=== PATIENT | male | born 1970 ===

== ENCOUNTER 2016-06-08 10:52 | Emergency (ER) | payer MEDICAID ==
[~2016-06-08] VITALS: Ht 185.4 cm; Wt 110.0 kg
[~2016-06-08 10:52] MED LIST: ASPI-973 PO; ATRV10T PO; DILT120T3 PO; GLBR5T PO; HYDR-4003 PO; METF500T4 PO; PRE20 PO; RAMI10CA PO
[2016-06-08 11:11] VITALS: BP 155/93; PULSE 82; RESP 18; O2SAT 98
--- NOTE | 2016-06-08 11:39 | ED.REPORT ---
HPI-Extremity Problem Lower Date of Service Jun 08, 2016 ED Provider: Dr. West Pt is a 45 y/o male w/ a hx of diabetes, HTN, presenting to the ED due to boil on left foot onset 2 days ago. He believes he may have developed a blister on his foot due to friction of his boot and popped subsequently popped the blister. He had a similar boil before which self resolved but he wanted this one to be checked out. Pt denies fever, chills, rash, leg swelling, nausea, vomiting. Nursing Notes Stated Complaint: LEFT FOOT BOIL Chief Complaint: Skin Rash/Abscess Nursing Notes Reviewed: Yes Allergies: Coded Allergies: No Known Allergies (Unverified , 06/08/16) Scheduled Aspirin (Aspirin) 81 Mg Tablet 162 MG PO DAILY Atorvastatin (Lipitor) 10 Mg Tab 10 MG PO DAILY Bacitracin (Bacitracin Ointment) 28.4 Gm Oint...g. 1 APPLIC TP DAILY Glyburide (Glyburide) 5 Mg Tab 10 MG PO BIDWM Metformin (Metformin) 500 Mg Tablet 1,500 MG PO DAILYWM Metformin (Metformin) 500 Mg Tablet 1,000 MG PO DAILYWD Prednisone (PredniSONE) 20 Mg Tablet 40 MG PO DAILY Take 40 mg daily for the next 5 days. First dose administered today in the ER. Ramipril (Ramipril) 10 Mg Capsule 10 MG PO DAILY Scheduled PRN Diltiazem (Diltiazem) 120 Mg Tablet 120 MG PO DAILY PRN PRN AD Hydrocodone-Acetaminophen 5-325 mg (Hydrocodone-Acetaminophen 5-325 mg) 1 Each Tablet 1-2 TABLET PO Q4H PRN PRN For Pain General Time Seen by MD: 11:38 Chief Complaint Other (left foot boil) Hx Obtained From: Patient Arrived By: Walk-in Onset Occurred: 2 days ago Symptom Duration: Since onset Location: : Foot left Quality: Painful Severity: Current: Mild Severity: Maximum: Mild Past Medical History Past Medical History Notes: Seen in ED 07/15/15 - Influenza A positive Past Medical History Angina Reports: Diabetes mellitus, Hypertension Past Surgical History denies Family History non-contributory Smoking History Never Smoker Social History Alcohol Use: "Social" Drug Use: Denies drug use Other Social History: Good social support, , Local resident Occupation lives with and family Ambulatory Status Independent Review of Systems Constitutional: Denies: Chills, Fever Musculoskeletal: Reports: Extremity pain, Denies: Extremity swelling Skin: Reports Rash Complete sys rev & neg: except as marked. GI: Denies: Nausea, Vomiting Physical Exam Initial Vital Signs Vital Signs (First) Date Time Temp Pulse Resp B/P Pulse Ox O2 Delivery O2 Flow Rate FiO2 06/08/16 11:11 36.3 82 18 155/93 98 Room Air Initial VS: Reviewed, Vital signs normal Head / Eyes: Atraumatic, Normocephalic ENT: Mucous membranes moist, Conjunctiva normal, No scleral icterus Neck: Supple, Full range of motion Respiratory: No respiratory distress Cardiovascular: Intact distal pulses Abdomen / GI: No distention Upper Extremities: Vascular intact, Neuro intact, No swelling, No tenderness Neurologic: Alert, Oriented, Nonfocal Psychiatric: Mood/affect normal, Behavior normal, Normal thought content Lower Extremity / Pelvis / MS: Full range of motion, No deformity, Neurologic intact, Vascular intact, No ligamentous injury, Tendon function NL, No compartment syndrome, No circumferential injury 1 cm abrasion over the lateral aspect of the left foot. No erythema, discharge, fluctuance, warmth, swelling Ankle / Foot: No deformity, Neurologic intact, Vascular intact, No ligamentous injury, Tendon function NL, No compartment syndrome, No edema Re-Eval/Medical Decision Source of Hx: Old records Re-Evaluation/Progress : Time of Eval: 12:34 Re-Evaluation/Progress Note: Pt rechecked. Informed pt of plan for treatment. Pt understands and agrees with plan for treatment. F/U instructions and RTER warnings given. All questions addressed. Counseled Regarding: Diagnosis, Need for follow-up, When/why to return to ED Discharge & Departure Impression: Primary Impression: Blister Additional Impression: Diabetes mellitus, type II Diabetes mellitus complication status: with skin complications Diabetes mellitus complication detail: with other skin complication Qualified Code: E11.628 - Type 2 diabetes mellitus with other skin complications Disposition: Home Discharge Condition All VS Reviewed: Yes Condition: Stable Additional Instructions: ED evaluation included interview and exam. There is a blister on your L foot. With your diabetes, it is important to care for it well so it does not become infected. Keep wound clean, apply antibiotic ointment daily and keep wound covered. Wear shoes and socks that fit well, keep your feet dry. Rest until this heals. Return to ED for increasing redness, swelling at wound. Follow up with [facility] resident's clinic next week. Referrals: [facility] (PCP) Scribe Attestation Portions of this note were transcribed by Aaron Barone. I, Dr. West personally performed the history, physical exam and medical decision-making; I reviewed and confirmed the accuracy of the information in the transcribed note. Signed by Santos Robledo, 06/08/16 - 1200 copies to: [facility] Shawn West MD Jun 08, 2016 11:39 AARON BARONE Jun 08, 2016 11:46
[2016-06-08] MEDS ORDERED: Bacitracin Ointment Packet TOPICAL ONE (11:45)
[2016-06-08] MEDS ORDERED: BACI28.4 TP (11:54)
== END 2016-06-08 13:00 | disposition home or self-care (01) ==
LOC: SED 10:52
DX: S90.822A Blister (nonthermal), left foot, initial encounter (principal); X58.XXXA Exposure to other specified factors, initial encounter; Y93.9 Activity, unspecified; Y92.9 Unspecified place or not applicable; Y99.8 Other external cause status; E11.628 Type 2 diabetes mellitus with other skin complications; I10 Essential (primary) hypertension; Z79.82 Long term (current) use of aspirin; Z79.84 Long term (current) use of oral hypoglycemic drugs

== ENCOUNTER 2016-06-10 21:22 | Emergency (ER) | payer MEDICAID ==
[~2016-06-10 21:22] MED LIST changes: +BACI28.4 TP
[2016-06-10 21:45] VITALS: BP 152/93; PULSE 85; RESP 20; O2SAT 97
--- NOTE | 2016-06-10 23:07 | ED.REPORT ---
HPI-Extremity Problem Lower Date of Service Jun 10, 2016 ED Provider: Dr. Crews Pt is a 45 year old male with a history of DM who presents to the ED for a re- check to be cleared to go back to work. He was recently diagnosed with cellulitis on his left foot which he has been treating with bacitracin. Pt reports that he wearing well-fitting shoes and keeping them clean and dry. He denies any fevers or any other symptoms. He reports that his foot appears worse than it was when he was in earlier this week. Nursing Notes Stated Complaint: RECHECK, TO GO BACK TO WORK Chief Complaint: General Complaint Nursing Notes Reviewed: Yes Allergies: Coded Allergies: No Known Allergies (Unverified , 06/08/16) Scheduled Aspirin (Aspirin) 81 Mg Tablet 162 MG PO DAILY Atorvastatin (Lipitor) 10 Mg Tab 10 MG PO DAILY Bacitracin (Bacitracin Ointment) 28.4 Gm Oint...g. 1 APPLIC TP DAILY Glyburide (Glyburide) 5 Mg Tab 10 MG PO BIDWM Metformin (Metformin) 500 Mg Tablet 1,500 MG PO DAILYWM Metformin (Metformin) 500 Mg Tablet 1,000 MG PO DAILYWD Prednisone (PredniSONE) 20 Mg Tablet 40 MG PO DAILY Take 40 mg daily for the next 5 days. First dose administered today in the ER. Ramipril (Ramipril) 10 Mg Capsule 10 MG PO DAILY Scheduled PRN Diltiazem (Diltiazem) 120 Mg Tablet 120 MG PO DAILY PRN PRN AD Hydrocodone-Acetaminophen 5-325 mg (Hydrocodone-Acetaminophen 5-325 mg) 1 Each Tablet 1-2 TABLET PO Q4H PRN PRN For Pain General Time Seen by MD: 23:06 Chief Complaint Other (Blisters ) Hx Obtained From: Patient Arrived By: Walk-in Onset Occurred: 5 days ago Symptom Duration: Since onset Severity: Current: No pain currently Severity: Maximum: Mild Similar Sx Previous: Yes Past Medical History Past Medical History Notes: Seen in ED 07/15/15 - Influenza A positive Past Medical History Angina Reports: Diabetes mellitus, Hypertension Past Surgical History denies Family History non-contributory Smoking History Never Smoker Social History Alcohol Use: "Social" Drug Use: Denies drug use Other Social History: Good social support, , Local resident Occupation lives with and family Ambulatory Status Independent Review of Systems Constitutional: Denies: Chills, Fever, Malaise, Weakness - generalized Musculoskeletal: Denies: Extremity pain, Extremity swelling Neurologic: Denies: Change LOC, Dizziness, Headache, Syncope, Weakness Complete sys rev & neg: except as marked. Physical Exam Initial Vital Signs Vital Signs (First) Date Time Temp Pulse Resp B/P Pulse Ox O2 Delivery O2 Flow Rate FiO2 06/10/16 21:45 36.7 85 20 152/93 97 Room Air Initial VS: Reviewed General/Constitutional: Well-developed, Well-nourished Head / Eyes: Atraumatic, Normocephalic, PERRL ENT: Mucous membranes moist, Conjunctiva normal, No scleral icterus Neck: Supple, Non-tender, Full range of motion Skin: Warm, Dry, No cyanosis Neurologic: Alert, Oriented, Nonfocal Lower Extremity / Pelvis / MS: Atraumatic, Inspection NL, No swelling, Non- tender Ankle / Foot: Atraumatic, Inspection NL, No swelling Dry cracked skin about his bilateral feet Suspected tinea pedis Re-Eval/Medical Decision Med Decision/Clinical Course I think he probably has tinea. There is a chance it is also cellulitic. There is erythema and cracking with scaling. I am going to put him on some Nizoral cream as well as a course of Keflex. Have this rechecked next week. I think he can go back to work either way. Source of Hx: Old records Re-Evaluation/Progress : Time of Eval: 23:22 Re-Evaluation/Progress Note: Pt is rechecked and informed of his diagnosis and the plan to discharge him at this time. He understands and agrees, all questions are addressed. Counseled Regarding: Diagnosis, Need for follow-up, When/why to return to ED Discharge & Departure Impression: Primary Impression: Tinea pedis Laterality: left Qualified Code: B35.3 - Tinea pedis Disposition: Home Discharge Condition All VS Reviewed: Yes Condition: Stable Patient Instructions: Tinea Pedis (ED) Additional Instructions: Take the antibiotic prescribed (Keflex) twice every day for the next 5 days. Apply Nizoral cream to the affected area twice every day for the next 10 days. Keep your feet clean and dry. Watch your blood sugar carefully and follow up with your primary care provider next week. You may return to work on TuesdayJune 14. Return to the emergency department with any new or worsening symptoms. Referrals: [facility] (PCP) Santos Attestation Portions of this note were transcribed by Leydi Shaffer. I, Dr. Crews personally performed the history, physical exam and medical decision-making; I reviewed and confirmed the accuracy of the information in the transcribed note. Signed by: Santos Martinez, 06/10/2016 23:25 copies to: [facility] Jayy Crews DO Jun 10, 2016 23:06 WAYNE SHAFFER Jun 10, 2016 23:13
[2016-06-10 23:55] VITALS: BP 152/93; PULSE 85; RESP 20; O2SAT 97
== END 2016-06-10 23:57 | disposition home or self-care (01) ==
LOC: SED 21:22
DX: B35.3 Tinea pedis (principal); E11.9 Type 2 diabetes mellitus without complications; I10 Essential (primary) hypertension; Z79.82 Long term (current) use of aspirin; Z79.84 Long term (current) use of oral hypoglycemic drugs

== ENCOUNTER 2016-07-05 21:38 | Emergency (ER) | payer MEDICAID ==
[~2016-07-05] VITALS: Ht 182.9 cm; Wt 111.8 kg
[2016-07-05 21:54] VITALS: BP 140/85; PULSE 92; RESP 16; O2SAT 98
--- NOTE | 2016-07-05 23:18 | ED.REPORT ---
HPI-Abd Pain M 40 and Over Date of Service Jul 05, 2016 ED Provider: Stephan Terrazas MD 45 year old male presents to the ER accompanied by his complaining of RLQ and right groin pain onset yesterday. Pain "feels like a balloon", and is exacerbated by standing/sitting upright. Patient denies fever, nausea, and vomiting. He also states that he was on his feet all day yesterday. Nursing Notes Stated Complaint: APPENDIX HURTS Chief Complaint: Male Abdominal Pain Nursing Notes Reviewed: Yes Allergies: Coded Allergies: No Known Allergies (Unverified , 07/05/16) Scheduled Aspirin (Aspirin) 81 Mg Tablet 162 MG PO DAILY Atorvastatin (Lipitor) 10 Mg Tab 10 MG PO DAILY Bacitracin (Bacitracin Ointment) 28.4 Gm Oint...g. 1 APPLIC TP DAILY Glyburide (Glyburide) 5 Mg Tab 10 MG PO BIDWM Metformin (Metformin) 500 Mg Tablet 1,500 MG PO DAILYWM Metformin (Metformin) 500 Mg Tablet 1,000 MG PO DAILYWD Prednisone (PredniSONE) 20 Mg Tablet 40 MG PO DAILY Take 40 mg daily for the next 5 days. First dose administered today in the ER. Ramipril (Ramipril) 10 Mg Capsule 10 MG PO DAILY Scheduled PRN Diltiazem (Diltiazem) 120 Mg Tablet 120 MG PO DAILY PRN PRN AD Hydrocodone-Acetaminophen 5-325 mg (Hydrocodone-Acetaminophen 5-325 mg) 1 Each Tablet 1-2 TABLET PO Q4H PRN PRN For Pain Ibuprofen (Ibuprofen) 800 Mg Tablet 800 MG PO TID PRN PRN For Pain General Time Seen by MD: 23:17 Chief Complaint Abdominal pain Hx Obtained From: Patient Arrived By: Walk-in Sudden in Onset?: No Onset Occurred: Yesterday Symptom Duration: Since onset Location: : RLQ Quality: Painful Severity: Current: Moderate Severity: Maximum: Moderate Associated with: Denies: Fever, Nausea, Vomiting Pertinent Negative: Pt denies other symptoms Similar Sx Previous: No Past Medical History Past Medical History Notes: Seen in ED 07/15/15 - Influenza A positive Past Medical History Angina Reports: Diabetes mellitus, Hypertension Past Surgical History denies Family History non-contributory Smoking History Never Smoker Social History Alcohol Use: "Social" Drug Use: Denies drug use Other Social History: Good social support, , Local resident Occupation lives with and family Ambulatory Status Independent Review of Systems Constitutional: Denies: Chills, Fever GI: Reports: Abdominal pain, Denies: Nausea, Vomiting Male: Denies Penile discharge Complete sys rev & neg: except as marked. Physical Exam Initial Vital Signs Vital Signs (First) Date Time Temp Pulse Resp B/P Pulse Ox O2 Delivery O2 Flow Rate FiO2 07/05/16 21:54 36.6 92 16 140/85 98 Room Air Initial VS: Reviewed Head / Eyes: Atraumatic, Normocephalic Neck: Supple, Non-tender, Full range of motion Extremities: Vascular intact, Neuro intact, No swelling, No tenderness Skin: Warm, Dry, No cyanosis Neurologic: Alert, Oriented, Nonfocal General/Constitutional: Awake, Alert, Well developed, Well nourished Respiratory / Chest: Breath sounds NL, Breath sounds = bilat, No respiratory distress, No rales, No rhonchi, No wheezing Cardiovascular: Heart rate NL, Regular rhythm, Heart sounds NL, Peripheral circulation NL Abdomen: No guarding, No rebound, BS normoactive, No hernia, No palpable mass Tenderness/Guarding/Rebound: Positive: Tender RLQ... Back: Inspection NL, Non-tender, No CVA tenderness Male Genitourinary: Atraumatic, Inspection NL, Penis NL, No penile discharge, Testes NL, No hernia Interpretation & Diagnostics Lab Results Interpretation Result Diagram: 07/05/16232607/05/162326 Test 07/05/16 23:27 07/05/16 23:34 White Blood Count 10.4th/mm3 (3.8-10.1) Red Blood Count 4.78mil/mm3 (4.40-5.80) Hemoglobin 13.9g/dL (13.8-17.2) Hematocrit 41.5% (41.0-50.0) Mean Corpuscular Volume 86.8fL (81-100) Mean Corpuscular Hemoglobin 29.1pg (27.0-35.0) Mean Corpuscular Hemoglobin Concent 33.5% (32.0-37.0) Red Cell Distribution Width 13.4% (12.3-15.4) Platelet Count 327bil/L (150-400) Neutrophils (%) (Auto) 56.7% (40-74) Lymphocytes (%) (Auto) 30.4% (14-46) Monocytes (%) (Auto) 10.7% (4-12) Eosinophils (%) (Auto) 1.7% (0-5) Basophils (%) (Auto) 0.3% (0-3) Prothrombin Time 10.2sec (8.1-12.5) Prothromb Time International Ratio 0.95ratio Sodium Level 137mEq/L (134-144) Potassium Level 4.2mEq/L (3.5-5.2) Chloride Level 99mEq/L (97-108) Carbon Dioxide Level 22mmol/L (18-29) Blood Urea Nitrogen 14mg/dL (6-24) Creatinine 0.95mg/dL (0.76-1.27) Estimat Glomerular Filtration Rate 92mL/min (>59) Glucose Level 118mg/dL (60-99) Calcium Level 9.3mg/dL (8.5-10.1) Magnesium Level 2.0mg/dL (1.6-2.6) Total Bilirubin 0.9mg/dL (0.0-1.2) Aspartate Amino Transf (AST/SGOT) 28U/L (0-50) Alanine Aminotransferase (ALT/SGPT) 49U/L (0-44) Alkaline Phosphatase 98U/L (25-150) Total Protein 7.6g/dL (6.4-8.4) Albumin 4.2g/dL (3.4-5.0) Lipase 42U/L (13-60) Hold Wheeler Top Tube Received (Received) Urine Color Yellow (YELLOW) Urine Appearance Clear (CLEAR,HAZY) Urine pH 6.0 (5.0-8.0) Urine Specific [place] 1.025 (1.003-1.035) Urine Protein Negativemg/dL (NEG,TRACE) Urine Glucose (UA) Negativemg/dL (NEGATIVE) Urine Ketones Negativemg/dL (NEGATIVE) Urine Occult Blood Negative (NEGATIVE) Urine Nitrite Negative (NEGATIVE) Urine Bilirubin Negative (NEGATIVE) Urine Urobilinogen Normalmg/dL (NORMAL) Urine Leukocyte Esterase Negative (NEGATIVE) Urine RBC 3-10/hpf (0-2) Urine WBC 0-5/hpf (0-5) Urine Epithelial Cells Occasional/hpf (NONE-MOD) Urine Crystals None seen (NONE SEEN) Urine Bacteria Few/hpf (NONE-FEW) Urine Hyaline Casts None/lpf (NONE) Urine Granular Casts None seen (NONE SEEN) Urine Waxy Casts None seen (NONE SEEN) Urine Red Blood Cell Casts None seen (NONE SEEN) Urine White Blood Cell Casts None seen (NONE SEEN) Urine Mucus Present (None Seen) Urine Trichomonas None seen (NONE SEEN) Urine Yeast None (NONE SEEN) Urine Culture Reflexed Not indicated CT Abd / Pelvis Interpretation CONCLUSION: No acute findings. Normal appendix. Electronically signed by Bryon Wallace MD Study type: Abdominal CT IV contrast Interpretation / Wet Read by: Interpret - Radiologist Re-Eval/Medical Decision Med Decision/Clinical Course 45-year-old with right lower quadrant abdominal pain and some sense of bulging in that area. I cannot elicit a hernia with upright posture Valsalva, but there is also no evidence of appendicitis or other dangerous cause. Discharged home with ibuprofen and rest. Four day excuse for work provided. Prompt return if worse and follow-up with PCP. Source of Hx: Old records Time of Eval: 01:20 Re-Evaluation/Progress Note: Discussed lab and radiology results and plan to discharge. Patient is amenable to the plan. Return precautions given. All other questions addressed. Counseled Regarding: Diagnosis, Lab results, Need for follow-up, When/why to return to ED Discharge & Departure Primary Impression: Abdominal pain Additional Impression: Abdominal muscle strain Disposition: Home Vital Signs - All Vital Signs Date Time Temp Pulse Resp B/P Pulse Ox O2 Delivery O2 Flow Rate FiO2 07/06/16 01:57 36.9 79 16 147/75 97 Room Air 07/05/16 21:54 36.6 92 16 140/85 98 Room Air )( All Prior VS Reviewed: Yes Condition: Stable Patient Instructions: Acute Abdominal Pain (ED) Additional Instructions: We do not find appendicitis, nor hernia, nor any other dangerous cause for your pain. Ibuprofen three times daily if needed for pain. Follow-up with your doctor in the office. Return if any immediate issues. Referrals: [facility] (PCP) Scribe Attestation Portions of this note were transcribed by Ady Emery. I, Dr. Terrazas, personally performed the history, physical exam and medical decision-making; I reviewed and confirmed the accuracy of the information in the transcribed note. Signed by: Santos Gilliam. 07/06/2016 - 01:22 copies to: [facility] Stephan Terrazas MD Jul 05, 2016 23:17 ADY EMERY Jul 05, 2016 23:24
[2016-07-05] MEDS ORDERED: 0.9% Sodium Chloride 1,000 ML IV ONE (23:22)
[2016-07-05] MEDS ORDERED: Pantoprazole 4 mg/mL 10 mL Inj IVPUSH ONE (23:25)
[2016-07-05 23:51] LABS: BASOPHILS % (AUTO) 0.3 % (0-3); EOSINOPHILS % (AUTO) 1.7 % (0-5); MONOCYTES % (AUTO) 10.7 % (4-12); Mean Corpuscular Hemoglobin 29.1 pg (27.0-35.0); Mean Corpuscular Volume 86.8 fL (81-100); NEUTROPHILS % (AUTO) 56.7 % (40-74); Platelet Count 327 bil/L (150-400)
[2016-07-06] LABS: INR 0.95 ratio
[2016-07-06 01:08] LABS: APPEARANCE,URINE CLEAR (CLEAR,HAZY); COLOR,URINE YELLOW (YELLOW); OCCULT BLOOD,URINE NEGATIVE (NEGATIVE); UROBILINOGEN,URINE NORMAL (NORMAL)
[2016-07-06] MEDS ORDERED: IBUP800T28 PO (01:19)
[2016-07-06 01:57] VITALS: BP 147/75; PULSE 79; RESP 16; O2SAT 97
--- NOTE | 2016-07-06 09:01 | DRSVH ---
PROCEDURE: CT ABDOMEN AND PELVIS WITH CONTRAST ([id number]) INDICATIONS: rlq abdo pain TECHNIQUE: After the administration of intravenous contrast, 5 mm thick sections acquired from the diaphragm to the symphysis. 5 mm coronal and sagittal reformats were acquired. For radiation dose reduction, the following was used: automated exposure control, adjustment of mA and/or kV according to patient siz e. COMPARISON: None. FINDINGS: Image quality: Excellent. ABDOMEN: Lung bases: Lung bases are clear. Heart size is normal. A small hiatal hernia is noted. Solid organs: There is diffuse hepatic fatty infiltration. Liver and spleen are normal in size and e nhancement. Gallbladder is normal. Biliary system is non dilated. Pancreas enhances normally. No adrenal nodules. Kidneys demonstrate normal size and enhancement, without hydronephrosis. Peritoneum and bowel: Appendix is normal. Bowel loops demonstrate normal wall thickness and caliber. There are scattered colonic diverticula. No evidence for active diverticulitis. No free fluid or ai r. Nodes and vessels: No retroperitoneal or mesenteric adenopathy by size criteria. Aorta and inferior vena cava are normal in size. Miscellaneous: Tiny fat containing umbilical hernia is noted. PELVIS: Genitourinary: Bladder wall thickness is normal. Miscellaneous: No inguinal hernias or adenopathy. Bones: No suspicious bony lesions. No vertebral body compression fractures. IMPRESSION: 1. Normal appendix. 2. Mild diverticulosis. No active diverticulitis. 3. Hepatic steatosis. No significant discrepancy with the caustic cresylate shift superintendent radiology preliminary report. Dictated by: Danilo Lieberman M.D. on 07/06/2016 at 8:56 Approved by: Danilo Lieberman M.D. on 07/06/2016 at 8:59
== END 2016-07-06 01:58 | disposition home or self-care (01) ==
LOC: SED 21:38
DX: S39.011A Strain of muscle, fascia and tendon of abdomen, initial encounter (principal); X50.9XXA Other and unspecified overexertion or strenuous movements or postures, initial encounter; Y93.89 Activity, other specified; Y92.89 Other specified places as the place of occurrence of the external cause; Y99.8 Other external cause status; I10 Essential (primary) hypertension; E11.9 Type 2 diabetes mellitus without complications; Z79.82 Long term (current) use of aspirin; Z79.84 Long term (current) use of oral hypoglycemic drugs
CPT/HCPCS: 36415; 74177; 80053; 81000; 83690; 83735; 85025; 85610; 96361; 96374; 96375; 99285; J1885; J7030; Q9967

== ENCOUNTER 2016-08-21 20:48 | Emergency (ER) | payer OTHER, MEDICAID ==
[~2016-08-21] VITALS: Ht 182.9 cm; Wt 111.8 kg
[~2016-08-21 20:48] MED LIST changes: +IBUP800T28 PO
[2016-08-21 20:58] VITALS: BP 173/93; PULSE 77; RESP 16; O2SAT 99
--- NOTE | 2016-08-21 21:37 | ED.REPORT ---
HPI-General Illness Date of Service August 21, 2016 ED Provider: Stephan Terrazas MD Patient is a 45 year old male with a hx of DM and HTN who presents to the ED complaining of SOB s/p heavy lifting at work. Associated symptoms include nausea , non-productive cough, and chest pain after lifting. His chest pain and nausea have since resolved. He denies diaphoresis, vomiting, palpitations, or any other symptoms. He reports having exertional SOB for the past few weeks. He has never had a heart attack but did have a cardioversion 15 years ago. He had a stress test 6 days ago. He takes metformin, diltiazem, ramipril, and glyburide. Risk factors negative tobacco positive diabetes hypertension. Family history not known. Nursing Notes Stated Complaint: SHORTNESS OF BREATH, CHEST PAIN Chief Complaint: Respiratory Complaints Nursing Notes Reviewed: Yes Allergies: Coded Allergies: No Known Allergies (Unverified , 07/05/16) Scheduled Aspirin (Aspirin) 81 Mg Tablet 162 MG PO DAILY Aspirin Chew (Aspirin Chew) 81 Mg Chew 81 MG PO DAILY Atorvastatin (Lipitor) 10 Mg Tab 10 MG PO DAILY Bacitracin (Bacitracin Ointment) 28.4 Gm Oint...g. 1 APPLIC TP DAILY Glyburide (Glyburide) 5 Mg Tab 10 MG PO BIDWM Metformin (Metformin) 500 Mg Tablet 1,500 MG PO DAILYWM Metformin (Metformin) 500 Mg Tablet 1,000 MG PO DAILYWD Prednisone (PredniSONE) 20 Mg Tablet 40 MG PO DAILY Take 40 mg daily for the next 5 days. First dose administered today in the ER. Ramipril (Ramipril) 10 Mg Capsule 10 MG PO DAILY Scheduled PRN Diltiazem (Diltiazem) 120 Mg Tablet 120 MG PO DAILY PRN PRN AD Hydrocodone-Acetaminophen 5-325 mg (Hydrocodone-Acetaminophen 5-325 mg) 1 Each Tablet 1-2 TABLET PO Q4H PRN PRN For Pain Ibuprofen (Ibuprofen) 800 Mg Tablet 800 MG PO TID PRN PRN For Pain General Time Seen by MD: 21:29 Chief Complaint Other (Shortness of breath ) Hx Obtained From: Patient Arrived By: Walk-in Sudden in Onset?: Yes Context: Occurred at: Workplace Recent Healthcare: Recent doctor visit Similar Sx Previous: Yes Past Medical History Past Medical History Notes: Seen in ED 07/15/15 - Influenza A positive Past Medical History Angina Reports: Diabetes mellitus, Hypertension Past Surgical History denies Family History non-contributory Smoking History Never Smoker Social History Alcohol Use: "Social" Drug Use: Denies drug use Other Social History: Good social support, , Local resident Occupation lives with and family Ambulatory Status Independent Review of Systems Full Review of Systems Respiratory: Reports: Dyspnea on exertion, Non-productive cough Cardiovascular: Reports: Chest pain, Denies: Palpitations GI: Reports: Nausea, Denies: Vomiting Skin: Denies Diaphoresis Complete sys rev & neg: except as marked. Physical Exam Vital Signs Vital Signs Date Time Temp Pulse Resp B/P Pulse Ox O2 Delivery O2 Flow Rate FiO2 08/22/16 01:06 36.2 82 19 153/77 97 Room Air 08/22/16 00:17 86 20 160/73 98 Room Air 08/21/16 22:26 88 22 143/70 95 Room Air 08/21/16 20:58 36.2 77 16 173/93 99 Room Air Initial VS: Reviewed Head / Eyes: Atraumatic, Normocephalic Respiratory: Breath sounds normal, Clear to auscultation, No respiratory distress Cardiovascular: Regular rate & rhythm, Heart sounds normal Skin: Warm, Dry Neurologic: Alert, Oriented, Nonfocal Psychiatric: Mood/affect normal, Behavior normal, Normal thought content General/Constitutional: Awake, Alert, Well appearing, Well developed Appearance / Presentation: Positive: Obese Neck: Full range of motion, No JVD Abdomen: Soft, Non-tender Interpretation & Diagnostics Lab Results Interpretation Result Diagram: 08/21/16 2154 08/21/16 2154 Test 08/21/16 21:54 08/21/16 23:13 White Blood Count 10.7th/mm3 (3.8-10.1) Red Blood Count 5.09mil/mm3 (4.40-5.80) Hemoglobin 14.8g/dL (13.8-17.2) Hematocrit 43.6% (41.0-50.0) Mean Corpuscular Volume 85.7fL (81-100) Mean Corpuscular Hemoglobin 29.1pg (27.0-35.0) Mean Corpuscular Hemoglobin Concent 33.9% (32.0-37.0) Red Cell Distribution Width 13.4% (12.3-15.4) Platelet Count 297bil/L (150-400) Neutrophils (%) (Auto) 61.8% (40-74) Lymphocytes (%) (Auto) 26.5% (14-46) Monocytes (%) (Auto) 9.8% (4-12) Eosinophils (%) (Auto) 1.3% (0-5) Basophils (%) (Auto) 0.5% (0-3) Prothrombin Time 10.3sec (8.1-12.5) Prothromb Time International Ratio 0.96ratio Activated Partial Thromboplast Time 25.4sec (22.8-33.0) D-Dimer < 0.50mg/L FEU (<0.50) Hold Urine Received (Received) Sodium Level 138mEq/L (134-144) Potassium Level 3.5mEq/L (3.5-5.2) Chloride Level 97mEq/L (97-108) Carbon Dioxide Level 20mmol/L (18-29) Blood Urea Nitrogen 11mg/dL (6-24) Creatinine 0.73mg/dL (0.76-1.27) Estimat Glomerular Filtration Rate 125mL/min (>59) Glucose Level 103mg/dL (60-99) Calcium Level 9.5mg/dL (8.5-10.1) Magnesium Level 1.7mg/dL (1.6-2.6) Total Bilirubin 1.1mg/dL (0.0-1.2) Aspartate Amino Transf (AST/SGOT) 23U/L (0-50) Alanine Aminotransferase (ALT/SGPT) 42U/L (0-44) Alkaline Phosphatase 110U/L (25-150) Pro-B-Type Natriuretic Peptide 10.58pg/mL (0-86) Total Protein 7.9g/dL (6.4-8.4) Albumin 4.3g/dL (3.4-5.0) Hold Wheeler Top Tube Received (Received) Troponin T 0.010ug/L (0.0-0.011) ECG Interpretation ECG Interpretation: nonspecific Intraventricular Conduction delay sinus rate 79 Time: 21:44 Interpreted by: ED physician Time: 00:55 Interpreted by: ED physician Repeat ECG: Repeat ECG unchanged X-Ray Chest Interpretation Chest Xray Interpretation: IMPRESSION: No acute disease Dictated by: Miller Frias M.D. on 08/21/2016 at 21:36 Approved by: Miller Frias M.D. on 08/21/2016 at 21:37 View: Portable, 1 view Interpretation / Wet Read by: Interpret - Radiologist Re-Eval/Medical Decision Med Decision/Clinical Course 45-year-old presents with effort-related anginal symptoms of concern for developing angina pectoris. Negative EKG and negative enzymes 2. Need stress test at the earliest opportunity. Additional risk factor of diabetes makes completion of his workup urgent. He is pain-free and discharged now in stable condition with an aspirin daily. Follow up Tuesday with his doctor. Time of Eval: 23:33 Re-Evaluation/Progress Note: Rechecked patient. He is not in any pain. Discussed timeline for course of care. Patient understands and agrees with plan. All questions addressed at this time. Time of Eval: 00:54 Re-Evaluation/Progress Note: Discussed plan for discharge. Patient understands and agrees with plan. All questions addressed at this time. Counseled Regarding: Diagnosis, Lab results, Need for follow-up, When/why to return to ED Discharge & Departure Primary Impression: Angina pectoris associated with type 2 diabetes mellitus Disposition: Home Discharge Condition All VS Reviewed: Yes Condition: Improved Additional Instructions: I suspect that the symptoms are because of coronary artery disease. This means that the arteries to the hard or slowly closing down from cholesterol plaque, and blood flow is becoming limited. If he developed discomfort of this sort, stop which are doing and rest. If it persists longer than fifteen minutes,, then return to the hospital immediately. Take a baby aspirin daily. Call your doctor on Tuesday morning for follow-up. You need a stress test as soon as that can be arranged. Return for any immediate issues over the weekend. Referrals: [facility] (PCP) Scribe Attestation Portions of this note were transcribed by Odalis Garcia. I, Dr. Terrazas personally performed the history, physical exam and medical decision-making; I reviewed and confirmed the accuracy of the information in the transcribed note. Signed by: Odalis Garcia 08/22/16, 0054 copies to: [facility] Stephan Terrazas MD August 21, 2016 21:37 ODALIS GARCIA August 21, 2016 21:44
--- NOTE | 2016-08-21 21:39 | DRSVH ---
PROCEDURE: X-RAY CHEST ONE VIEW, PORTABLE ([id number]) INDICATIONS: shortness of breath TECHNIQUE: One view of the chest was acquired. COMPARISON: [facility], [place], XR CHEST 2VW, 07/17/2015, 12:10. FINDINGS: Surgical changes and devices: None. Lungs and pleura: No pleural effusions or pneumothorax. Lungs are clear. Mediastinum: Mediastinal contours appear normal. Heart size is normal. Bones and chest wall: No suspicious bony lesions. Overlying soft tissues appear unremarkable. IMPRESSION: No acute disease Dictated by: Miller Frias M.D. on 08/21/2016 at 21:36 Approved by: Miller Frias M.D. on 08/21/2016 at 21:37
[2016-08-21 22:03] LABS: BASOPHILS % (AUTO) 0.5 % (0-3); EOSINOPHILS % (AUTO) 1.3 % (0-5); MONOCYTES % (AUTO) 9.8 % (4-12); Mean Corpuscular Hemoglobin 29.1 pg (27.0-35.0); Mean Corpuscular Volume 85.7 fL (81-100); NEUTROPHILS % (AUTO) 61.8 % (40-74); Platelet Count 297 bil/L (150-400)
[2016-08-21 22:26] VITALS: BP 143/70; PULSE 88; RESP 22; O2SAT 95
[2016-08-21 22:26] LABS: TROPONIN T 0.01 ug/L (0.0-0.011)
[2016-08-21 22:37] LABS: Magnesium 1.7 mg/dL (1.6-2.6)
[2016-08-21 22:53] LABS: D-Dimer < 0.50 mg/L FEU (<0.50); INR 0.96 ratio
[2016-08-22 00:17] VITALS: BP 160/73; PULSE 86; RESP 20; O2SAT 98
[2016-08-22] MEDS ORDERED: ASPI81TA3 PO (00:51)
[2016-08-22 01:06] VITALS: BP 153/77; PULSE 82; RESP 19; O2SAT 97
== END 2016-08-22 01:06 | disposition home or self-care (01) ==
LOC: SED 20:48
DX: I20.9 Angina pectoris, unspecified (principal); E11.9 Type 2 diabetes mellitus without complications; X50.0XXA Overexertion from strenuous movement or load, initial encounter; Y93.89 Activity, other specified; Y92.69 Other specified industrial and construction area as the place of occurrence of the external cause; Y99.0 Civilian activity done for income or pay; I10 Essential (primary) hypertension; Z79.82 Long term (current) use of aspirin; Z79.84 Long term (current) use of oral hypoglycemic drugs; I20.8 Other forms of angina pectoris